=== PATIENT | male | born 1990 | race Caucasian/White ===

== ENCOUNTER → 2018-05-13 | Outpatient (CLI) | payer MEDICARE, MEDICAID ==
[~2018-05-13] MED LIST: FLUT16SP2 NS; LORA10TA62 PO; RISP1TAB3 PO
== END | disposition home or self-care (01) ==
LOC: CFH 15:37
PROVIDERS: ATTEND Nurse Practitioner Family
DX: M25.562 Pain in left knee (principal); M89.9 Disorder of bone, unspecified; R53.1 Weakness

== ENCOUNTER 2019-01-30 16:35 | Emergency (ER) | payer MEDICARE, MEDICAID ==
[~2019-01-30] VITALS: Ht 175.3 cm; Wt 79.2 kg
[2019-01-30 16:37] VITALS: BP 151/88
--- NOTE | 2019-01-30 16:45 | NUR ---
Pt ambulated to room with ED RN.
[2019-01-30] MEDS ORDERED: ARIP10TA33 PO (16:54)
--- NOTE | 2019-01-30 16:55 | NUR ---
Pt to imaging, with tech, via gujose.
--- NOTE | 2019-01-30 17:20 | NUR ---
Callie VALADEZ, at bedside to evaluate pt.
--- NOTE | 2019-01-30 17:31 | NUR ---
EDT at bedside for LOKESH wrap.
--- NOTE | 2019-01-30 17:41 | NUR ---
Patient/Caregiver given discharge instructions and they have confirmed that they understand the instructions. Patient ambulatory with steady gait.
== END 2019-01-30 17:49 | disposition home or self-care (01) ==
LOC: ED 17:43
DX: M25.562 Pain in left knee (principal)
CPT/HCPCS: 29505; 99283

== ENCOUNTER 2019-03-31 15:03 | Emergency (ER) | payer MEDICARE, MEDICAID ==
[~2019-03-31] VITALS: Ht 172.7 cm; Wt 81.4 kg
[~2019-03-31 15:03] MED LIST changes: +ARIP10TA33 PO
[2019-03-31 15:32] LABS: BASOPHILS # (AUTO) 0.04 x10^3/uL (0-0.1); BASOPHILS % (AUTO) 1 % (0-1); EOSINOPHILS # (AUTO) 0.02 x10^3/uL (0-0.4); EOSINOPHILS % (AUTO) 0 % (1-7); LYMPHOCYTES # (AUTO) 2.05 x10^3/uL (1-3.4); LYMPHOCYTES % (AUTO) 24 % (22-44); MD NO; MEAN CORPUSCULAR HEMOGLOBIN 31.8 pg (27.5-34.5); MEAN CORPUSCULAR VOLUME 90.8 fL (81-97); MEAN PLATELET VOLUME 7.2 fL (7.4-10.4); MONOCYTES # (AUTO) 0.49 x10^3/uL (0.2-0.8); MONOCYTES % (AUTO) 6 % (2-9); NEUTROPHILS # (AUTO) 5.81 x10^3/uL (1.8-6.8); NEUTROPHILS % (AUTO) 69 % (42-75); PLATELET COUNT 223 x10^3/uL (130-400); RED BLOOD COUNT 5.08 x10^6/uL (4.38-5.82); RED CELL DISTRIBUTION WIDTH 12.8 % (9.4-14.8)
[2019-03-31 15:43] LABS: ALANINE AMINOTRANSFERASE 18 U/L (12-78); ALBUMIN 4.4 g/dL (3.4-5.0); ANION GAP 7 mmol/L (5-15); CALCIUM 9.4 mg/dL (8.5-10.1); CHLORIDE 109 mmol/L (98-107); CREATININE 1.03 mg/dL (0.7-1.3)
[2019-03-31 15:45] LABS: ALKALINE PHOSPHATASE 76 U/L (45-117); BILIRUBIN,TOTAL 0.5 mg/dL (0.2-1.0); TOTAL PROTEIN 7.8 g/dL (6.4-8.2)
[2019-03-31 16:59] VITALS: BP 118/68
--- NOTE | 2019-03-31 16:59 | NUR ---
Patient/Caregiver given discharge instructions and they have confirmed that they understand the instructions. Patient ambulatory with steady gait.
== END 2019-03-31 17:00 | disposition home or self-care (01) ==
LOC: ED 16:50
DX: M79.662 Pain in left lower leg (principal)
CPT/HCPCS: 36415; 80053; 85025; 93005; 99284

== ENCOUNTER 2021-06-21 16:36 | Emergency (ER) | payer MEDICARE, MEDICAID ==
[~2021-06-21] VITALS: Ht 172.7 cm; Wt 84.1 kg
[~2021-06-21 16:36] MED LIST changes: +LORA-59 PO; -LORA10TA62 PO; -RISP1TAB3 PO; +RISP1TAB90 PO
[2021-06-21 16:38] VITALS: BP 157/88
--- NOTE | 2021-06-21 16:57 | NUR ---
PT IN GOWN IN [facility]; AWAITING ERP.
[2021-06-21] MEDS ORDERED: IBUPROFEN 600 MG TABLET ONE (17:18)
[2021-06-21] MEDS ORDERED: CYCLOBENZAPRINE 10 MG TABLET ONE (17:18)
--- NOTE | 2021-06-21 17:20 | NUR ---
pt medicated per mar
[2021-06-21] MEDS ORDERED: CYCLOBENZAPRINE 10 MG TABLET PO ONE (17:30)
[2021-06-21] MEDS ORDERED: IBUPROFEN 200 MG TABLET PO ONE (17:30)
--- NOTE | 2021-06-21 18:01 | NUR ---
PT D/C WITH D/C SUMMARY. ALL QUESTIONS ANSWERED. PT MEDICATED PER MAR PRIOR TO PT D/C. PT PLACED IN WRIST SPLINT AND VERBALIZES UNDERSTANDING OF F/U CARE. PT DENIES ANY OTHER NEEDS PERTAINING TO THIS VISIT AND AMBULATES TO REGISTRATION DESK WITH STEADY GAIT FOR D/C HOME.
== END 2021-06-21 18:03 | disposition home or self-care (01) ==
LOC: ED 17:16
DX: M77.8 Other enthesopathies, not elsewhere classified (principal); G89.29 Other chronic pain
CPT/HCPCS: 29125; 99283